=== PATIENT | male | born 1950 | race Caucasian/White ===

== ENCOUNTER 2022-11-30 05:50 | Day surgery (SDC) | payer MEDICARE ==
[~2022-11-30] VITALS: Ht 185.4 cm; Wt 104.5 kg
[~2022-11-30 05:50] MED LIST: AMLODIPINE BESYL5 MG PO; JANUVIA100 MG PO; LIPITOR10 MG PO; LOSARTAN POTAS100 MG PO; SYNJARDY XR 5-1 EACH PO
[2022-11-30 06:18] VITALS: BP 169/67
[2022-11-30] MEDS ORDERED: MULTI VITAMIN1 EACH PO (06:22)
--- NOTE | 2022-11-30 09:19 | NUR ---
11/30/22 0919 Kesha Do 0909 PATIENT ARRIVES TO PACU SLEEPING. DOES NOT RESPOND TO VERBAL STIMULI. RESP EVEN AND UNLABORED, MASK AT 6 LITERS. 0914 PATIENT OPENS EYES WITH VERBAL STIMULI. ABLE TO STAY AWAKE WITHOUT FURTHER STIMULATION. ASKING/ANSWERING QUESTIONS APPROPRIATELY. RESP EVEN AND UNLABORED, OXYGEN OFF, ROOM AIR SATS >94%. DENIES PAIN OR NAUSEA.
[2022-11-30] MEDS ORDERED: OXYCODON-ACETA1 EAC2 PO (09:26)
[2022-11-30] MEDS ORDERED: ACETAMINOPHEN500 MG PO (09:26)
[2022-11-30] MEDS ORDERED: IBUPROFEN600 MG PO (09:26)
[2022-11-30 09:34] VITALS: BP 121/60
--- NOTE | 2022-11-30 09:35 | NUR ---
PT ARRIVES TO UNIT VIA STRETCHER FROM PACU. REPORT RECEIVED FROM MICHOACANO PUTNAM. PT REPORTS PAIN 1/10 AND NO NEED FOR PRN PAIN MED AT THIS TIME. DRESSING HAS SCANT AMOUNT OF SS DRAINAGE BUT IS INTACT. SKIN IS WARM/PINK/DRY AND CAP REFILL <3 SEC. PT REPORTS NO NAUSEA, DIZZINESS, SOB, OR N/T AT THIS TIME. PT IS A&O X4 W/ AT BEDSIDE. DR. FORBES IN ROOM AT THIS TIME FOR US OF LUMP ON LFT SIDE OF NECK, WILL SCHEDULE WITH FOLLOW UP APPT PER ANDREI GUZMÁN ORDER. APPLESAUCE, CRACKERS PROVIDED. PT TOLERATING ORAL LIQUIDS W/OUT ANY DIFFICULTY. IV SITE WNL. CALL LIGHT WITHIN REACH, NO FURTHER NEEDS AT THIS TIME.
[2022-11-30 10:24] VITALS: BP 125/57
--- NOTE | 2022-11-30 10:35 | NUR ---
IN PT ROOM FOR ASSESSMENT AND VS. VSS. PT REPORTS NEED TO VOID, THIS RN STANDBY ASSIST TO RESTROOM, 380 ML OUTPUT INTO URINAL. PT STATES PAIN AROUND 2-3/10 POST AMBULATION. DRESSING HAS SMALL AMOUNT OF SS DRAINAGE BUT REMAINS INTACT. PT IS A&O X4 WITH AT BEDSIDE. PT REPORTS NO NAUSEA, SOB, DIZZINESS, OR N/T DURING OR POST AMBULATION. PT REQUESTS PRN PAIN MED FOR DRIVE HOME TO [place]. PRN PERCOCET GIVEN (SEE EMAR). PT IS NOW GETTING DRESSED W/'S ASSISTANCE. IV SITE SALINE LOCKED, WNL. CALL LIGHT WITHIN REACH.
--- NOTE | 2022-11-30 11:05 | NUR ---
IN PT ROOM PROVIDING DISCHARGE EDUCATION. PT AND STATE VERBAL UNDERSTANDING AND REPORT NO FURTHER NEEDS OR QUESTIONS AT THIS TIME. SPARE OPSITE AND GAUZE INCLUDED FOR PT AND COMFORT. DRESSING REMAINS INTACT WITH SMALL AMOUNT OF SS DRAINAGE AT DISTAL PORTION OF DRESSING AND SCANT AMOUNT AT SUPERIOR PORTION OF DRESSING. PT REPORTS PAIN AT 1/10 AT THIS TIME AND REPORTS NO DIZZINESS, NAUSEA, SOB, OR N/T AT THIS TIME. IV SITE DC'ED, CATH TIP INTACT, AND WNL. PT ESCORTED OFF OF UNIT VIA WC BY THIS RN AND STANDBY ASSIST TO PASSENGER SIDE OF 'S VEHICLE. ALL BELONGINGS IN PT POSSESSION AT THIS TIME.
--- NOTE | 2022-11-30 14:41 | NUR ---
PT ALERT, ORIENTED AND SUPPORTED BY HIS SHERIE. PT FEELS PREPARED, DR FORBES IN TO PREP PT. GAVE BLESSING AND WILL FOLLOW
--- NOTE | 2022-11-30 15:07 | OR ---
[facility] [address], [place] [address] Signed DATE OF OPERATION: 11/30/2022 SURGEON: Lio Forbes MD PREOPERATIVE DIAGNOSIS: Left inguinal hernia. POSTOPERATIVE DIAGNOSIS: Left direct inguinal hernia with an enlarged cord lipoma. PROCEDURES: 1. Left inguinal hernia repair with implantation of Prolene mesh (underlay technique). 2. Excision of left cord lipoma. ANESTHESIA: General, LMA, David Luis Antonio, CNC SERVICE ENGINEER as well as preoperative ilioinguinal nerve block and local anesthetic Marcaine 0.25% with epinephrine. INDICATION: This 72-year-old white man is a patient of Dr. Sara Bingham. He is from [place]. He has been diagnosed as having left inguinal hernia. He has noticed this for a year. He has no evidence of ongoing constipation, urinary outlet obstructive symptoms or chronic cough. He quit smoking in 2009. A CT scan of the abdomen performed in [place] on November 05, 2019, at that time showed bilateral external iliac lymph node enlargement. A subsequent CT scan of the pelvis in October 2020 showed "stable" hernias bilaterally, left greater than right. Examination shows subtle findings of left inguinal hernia which is reducible. He has been offered left inguinal hernia repair at this time. He understands the risk of bleeding, infection, recurrence and so on. FINDINGS: A bulky cord lipoma was noted. This was excised independently of the cord. There was no sign of indirect sac. He did have an enlarged ring consistent with a direct hernia as well. Repair consisted of excision of the lipoma of the cord as well as implantation of Prolene mesh in an underlay technique. Cord structures were preserved. DESCRIPTION OF PROCEDURE: The patient was brought to the operating room and given a general LMA type anesthetic. Preoperative antibiotic Ancef was given. Sequential compression device stockings were used and heparin subcutaneously administered. The lower abdomen and groin areas were clipped and prepared with a chlorhexidine solution and draped sterilely. An Ioban was Electronically Signed By: LIO FORBES MD 11/30/22 1507 PATIENT NAME: GISSEL WALLACE OPERATIVE REPORT DATE OF : 48 REPORT #: [id number] PHYSICIAN: LIO FORBES MD PCP: SARA BINGHAM MD REPORT IS CONFIDENTIAL AND NOT TO BE RELEASED WITHOUT AUTHORIZATION [facility] [address], [place] [address] Signed applied as well. The patient had undergone an inguinal nerve block by the medical center director prior to operation. An incision was made cephalad to the pubic tubercle on the left. Dissection was carried through the subcutaneous tissue. He was relatively obese. The external oblique was incised along its fibers revealing the underlying cord. A dominant ilioinguinal nerve branch was identified, dissected free from the cord and reflected around it, preserving it fully. The cord was mobilized from the floor with blunt electrocautery dissection and encircled with a [place] drain. The cord was somewhat bulky initially and is dissected free circumferentially dividing the cremasteric muscle fibers revealing no sign of indirect sac only a bulky cord lipoma. This was dissected free from the cord structures and excised after securing the base pedicle with an 0 Vicryl tie. Examination of the floor showed attenuation of the fibers, particularly more laterally originating from the internal ring. The inferior epigastric vessels were identified and well preserved. Attenuation of the floor likely accounting for the bulk of his hernia type problem. The attenuated fibers of the fascia of the transversalis were incised with electrocautery and the properitoneal fat bluntly . An Allis clamp was applied to the tendon of the transversus abdominis. A segment of Prolene mesh was cut to an elliptical configuration and secured in an underlay technique with interrupted 2-0 Prolene sutures. A defect was cut in the graft to accommodate the cord and the graft was secured laterally with all due care avoiding complete circumferential occlusion of the cord. 10 mL of 0.25% Marcaine was injected locally. The cord was placed in the canal as was the ilioinguinal nerve which was well preserved and not encumbered by suture. The external oblique was reapproximated with running 2-0 Vicryl suture. Steve layer was reapproximated with interrupted 3-0 Vicryl and skin closed with running subcuticular 3-0 Vicryl. Steri-Strips were applied as was an Acticoat dressing. He tolerated the procedure well and blood loss was minimal. Lio Forbes MD JM/MODL /[id number] cc: Sara Bingham MD Electronically Signed By: LIO FORBES MD 11/30/22 1507 PATIENT NAME: GISSEL WALLACE OPERATIVE REPORT DATE OF : 48 REPORT #: [id number] PHYSICIAN: LIO FORBES MD PCP: SARA BINGHAM MD REPORT IS CONFIDENTIAL AND NOT TO BE RELEASED WITHOUT AUTHORIZATION [facility] [address] [place], [place] [address] Signed Copies: SARA BINGHAM MD ~ Electronically Signed By: LIO FORBES MD 11/30/22 1507 PATIENT NAME: GISSEL WALLACE OPERATIVE REPORT DATE OF : 48 REPORT #: [id number] PHYSICIAN: LIO FORBES MD PCP: SARA BINGHAM MD REPORT IS CONFIDENTIAL AND NOT TO BE RELEASED WITHOUT AUTHORIZATION
--- NOTE | 2022-12-04 10:24 | PATH ---
[facility] [address] [place] [place] [address] Signed SPECIMEN(S): A LIPOMA OF THE CORD SPECIMEN SOURCE: A. LIPOMA OF THE CORD CLINICAL HISTORY: Lipoma of the cord. Left inguinal hernia repair. FINAL PATHOLOGIC DIAGNOSIS: Lipoma of the cord: - [place] lobulated adipose tissue and vasculature consistent with lipoma. JVR:smh:[id number] MICROSCOPIC EXAMINATION: Histologic sections of all submitted blocks are examined by light microscopy. These findings, together with the gross examination, support the pathologic diagnosis. GROSS DESCRIPTION: The specimen, labeled and designated "[place], lipoma of the cord," is received in formalin and consists of yellow-quiroz, smooth, soft fibroadipose tissue that measures 8.2 x 1.5 x 0.9 cm. Specimen is inked. Sectioning through the specimen reveals regular adipose tissue. No abnormalities are grossly identified. Art Objects Salesperson sections are submitted in (A1-A2). JS (under the direct supervision of a pathologist) The Gross Description was prepared using a voice recognition system. The report was reviewed for accuracy; however, sound-alike word errors, addition and/or deletions may occur. If there is any question about this report, please contact Client Services. PERFORMING LABORATORY: The technical component was performed by [employer] [address] [place] [id number] (CLIA# [id number]). Professional interpretation was performed by [facility] - [facility], [address] [place] [id number] (CLIA#: [id number]). Diagnostician: Isaías Almaguer MD Pathologist Electronically Signed 12/04/2022 PATIENT NAME: GISSEL WALLACE PATHOLOGY DATE OF : 48 REPORT #: [id number] PHYSICIAN: [facility] PCP: SARA JASMINE MD REPORT IS CONFIDENTIAL AND NOT TO BE RELEASED WITHOUT AUTHORIZATION [address] [address] Signed Copies: ~ PATIENT NAME: GISSEL WALLACE PATHOLOGY DATE OF : 48 REPORT #: [id number] PHYSICIAN: [facility] PCP: SARA JASMINE MD REPORT IS CONFIDENTIAL AND NOT TO BE RELEASED WITHOUT AUTHORIZATION
== END 2022-11-30 11:15 | disposition home or self-care (01) ==
LOC: DS 05:50
PROVIDERS: ATTEND Surgery
DX: K40.90 Unilateral inguinal hernia, without obstruction or gangrene, not specified as recurrent (principal); D17.6 Benign lipomatous neoplasm of spermatic cord; N32.3 Diverticulum of bladder; E11.9 Type 2 diabetes mellitus without complications; I10 Essential (primary) hypertension; Z90.49 Acquired absence of other specified parts of digestive tract
CPT/HCPCS: 00840; 64450; 76942; C1781; J0131; J0690; J1100; J1644; J1885; J2250; J2405; J2704; J2795; J3010; J7121